=== PATIENT | female | born 1945 | race Two or more races ===

== ENCOUNTER 2024-10-08 16:03 | Emergency (ER) | payer OTHER ==
[~2024-10-08] VITALS: Ht 165.1 cm; Wt 77.1 kg
[2024-10-08] MEDS ORDERED: LEVOTHYROXINE25 MCG (17:03)
[2024-10-08] MEDS ORDERED: CARVEDILOL3.125 MG (17:03)
[2024-10-08] MEDS ORDERED: XARELTO10 M1 (17:03)
[2024-10-08] MEDS ORDERED: ZOLOFT25 MG (17:04)
[2024-10-08] MEDS ORDERED: NEURIN (17:04)
[2024-10-08] MEDS ORDERED: ORPHENADRINE CITRATE 30 MG/ML AMPUL IM ONE (21:15)
[2024-10-08] MEDS ORDERED: DEXAMETHASONE SODIUM PHOSPHATE 4 MG/ML VIAL IM ONE (21:15)
[2024-10-08] MEDS ORDERED: BACLOFEN10 MG PO (21:21)
[2024-10-08] MEDS ORDERED: ORPHENADRINE CITRATE 30 MG/ML AMPUL ONE (21:30)
[2024-10-08] MEDS ORDERED: DEXAMETHASONE SODIUM PHOSPHATE 4 MG/ML VIAL ONE (21:30)
== END 2024-10-08 23:00 | disposition home or self-care (01) ==
LOC: ER 16:04
DX: M54.50 Low back pain, unspecified (principal); E03.8 Other specified hypothyroidism; Z88.2 Allergy status to sulfonamides; Z91.040 Latex allergy status